=== PATIENT | female | born 1955 | race Caucasian/White ===

== ENCOUNTER → 2022-04-19 16:45 | Outpatient (CLI) | payer MEDICARE, BC, SELFPAY ==
--- NOTE | ~2022-04-19 | MR_ITS ---
EXAMINATION: MR knee RT wo con DATE: 04/19/2022 17:27 INDICATION: Medial right knee pain x3 weeks, no trauma TECHNIQUE: Magnetic resonance imaging (MRI) of the right knee was performed without intravenous contr ast. Sequences included axial PD-weighted FS FSE, coronal PD-weighted FSE and PD-weighted FS FSE, sag ittal PD-weighted FSE, and sagittal T2-weighted FS FSE. COMPARISON: X-ray right knee for 721, images only. FINDINGS: Medial compartment: Oblique undersurface tear of the posterior horn, medial meniscus. Mild extrusion. A small flap of men iscal tissue extends into the medial recess. Small apical tear of the meniscal body. Moderate diffuse cartilage thickening with multifocal areas of full-thickness focal cartilage loss and/or signal abno rmality. Marrow edema in the medial aspect of the tibial plateau Moderate osteophytosis. Lateral compartment: No meniscal tear. Moderate diffuse thinning of cartilage, without focal defect. Mild osteophytosis. Patellofemoral compartment: Near full-thickness cartilage loss on the median facet with subjacent subcortical cyst and reactive m arrow change. Mild osteophytosis. Intact retinacula. Ligaments and tendons: Thickening with subtle fiber discontinuity and mild superficial and deep signal at the proximal MCL. The ACL, PCL, and LCL are intact. The remaining flexor and extensor tendons are intact. Fluid: No significant knee joint effusion. Small Harper's cyst. Osseous/other: Degenerative subcortical cystic change and edema in the posterior aspect of the nonweightbearing surf ann marie of the medial femoral condyle. Otherwise, no suspicious focal or diffuse marrow signal IMPRESSION: 1. Oblique undersurface tear of the posterior horn, medial meniscus. 2. Tricompartmental osteoarthritic change, moderate in the medial compartment. 3. Low-grade, possibly chronic MCL injury. 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
== END ==
PROVIDERS: Visit Provider Nurse Practitioner
DX: M17.11 Unilateral primary osteoarthritis, right knee (principal); S83.241A Other tear of medial meniscus, current injury, right knee, initial encounter; X58.XXXA Exposure to other specified factors, initial encounter
CPT/HCPCS: 73721

== ENCOUNTER 2022-07-03 10:20 | Emergency (ER) | payer MEDICARE, BC, SELFPAY ==
--- NOTE | ~2022-07-03 | XR_ITS ---
XR foot RT min 3V DATE: 07/03/2022 10:40 INDICATION: Rolled foot yesterday. Lateral foot pain. TECHNIQUE: 4 views COMPARISON: None FINDINGS: Transverse virtually nondisplaced fracture at the very proximal shaft of the fifth metacarp al bone. There is an old healed fracture deformity of the mid to distal fifth metatarsal shaft. Status post bunionectomy. Polyarticular osteoarthritis. Prominent plantar calcaneal enthesopathy. IMPRESSION: Transverse virtually nondisplaced fracture at the very proximal shaft of the fifth metata rsal bone Reviewed, dictated and finalized at location A. [employer] IMPRESSION: Transverse virtually nondisplaced fracture at the very proximal sha ft of the fifth metatarsal bone
[2022-07-03 10:30] VITALS: BP 153/96; PULSE 79; RESP 18; TEMP 36.6; O2SAT 99
--- NOTE | 2022-07-03 11:01 | ED.LOWEXIN ---
HPI - Extremity Injury (Lower) General Chief Complaint: Extremity Injury, Lower Stated Complaint: Rt Foot Pain and Swelling Time Seen by Provider: 07/03/22 10:53 Source: patient Mode of arrival: ambulatory Limitations: no limitations History of Present Illness HPI Narrative: Patient presents today complaining of an injury to her right foot. She was walking last night she and a stepped off a curb twisting her foot. She has been ambulatory with pain since the injury. Denies numbness or tingling. She is pain-free at rest, but this increases to 7/10 with weight-bearing. She applied ice, took ibuprofen last night and elevated the foot, which did provide some relief. She has an established relationship with Dr. Ramírez. Related Data Home Medications Medication Instructions Recorded Confirmed acetaminophen 650 mg 650 mg PO Q12H 08/13/20 07/03/22 tablet,extended release (Tylenol Arthritis Pain) escitalopram oxalate 5 mg tablet 5 mg PO DAILY 08/13/20 07/03/22 simvastatin 40 mg tablet 40 mg PO DAILY 08/13/20 07/03/22 Allergies Allergy/AdvReac Type Severity Reaction Status Date / Time ciprofloxacin AdvReac Mild Hives Verified 07/03/22 10:25 Review of Systems Review of Systems: CONSTITUTIONAL: Denies body aches, fever, chills, or sweats. EYES: Denies visual changes, redness, or discharge. ENT: Denies rhinorrhea, congestion, sore throat, or otalgia. CARDIOVASCULAR: Denies chest pain, palpitations, or edema. RESPIRATORY: Denies cough or dyspnea. GASTROINTESTINAL: Denies abdominal pain, nausea, vomiting, or diarrhea. GENITOURINARY: Denies dysuria or hematuria. SKIN: Denies rash, itching, or wounds. MUSCULOSKELETAL: Denies back pain, or myalgia.+ right foot injury NEUROLOGIC: Denies headache, numbness, tingling, or weakness. PSYCH: Denies depression or anxiety. FOR[facility], [facility] Past Medical History Medical History Degenerative arthritis of knee, bilateral Hyperlipemia Surgical History Surgical History History of bunionectomy History of surgical removal of ganglion cyst History of tubal ligation Family History Family History Other Diabetes mellitus Heart disease Hypertension Social History Social History Smoking status: Never smoker Alcohol intake: current Living arrangements: with family Occupation/Education: retired Gender identity (if verbalized by the patient): Female Comments At time of signature, I have reviewed and agree with nursing past medical, surgical, social and family history unless otherwise noted. Please see nursing chart for further information. There is no relevant family history pertinent to the presenting complaint Exam Narrative: GENERAL: Well-appearing, well-nourished, and in no acute distress. HEAD: Normocephalic, atraumatic. EYES: EOMI. No redness or drainage. Conjunctivae normal. ENT: Mucous membranes pink and moist. NECK: Normal AROM. CHEST: No respiratory distress. EXTREMITIES: Right foot: Tenderness, swelling, and ecchymosis to the lateral foot. Distal sensation intact. Capillary refill normal. Pupils normal. Ganglion cyst to the dorsum of the foot with old surgical scar. Full range of motion of the toes. Ankle is nontender. SKIN: Warm, dry, no rash. Capillary refill normal. Normal skin turgor. NEURO: No focal deficits. Alert and oriented x3. Gait steady. PSYCH: Normal affect. No signs of depression or anxiety. Course Course Level of Care: Express Care Visit Vital Signs Vital signs: Vital Signs Temperature 97.9 F 07/03/22 10:30 Pulse Rate 79 07/03/22 10:30 Respiratory Rate 18 07/03/22 10:30 Blood Pressure 153/96 H 07/03/22 10:30 Pulse Oximetry 99 07/03/22 10:30 Oxygen Delivery Room Air 07/03/22
== END 2022-07-03 11:10 | disposition home or self-care (01) ==
PROVIDERS: Emergency Provider Nurse Practitioner; PCP Family Medicine
DX: S92.354A Nondisplaced fracture of fifth metatarsal bone, right foot, initial encounter for closed fracture (principal); X50.9XXA Other and unspecified overexertion or strenuous movements or postures, initial encounter; M17.0 Bilateral primary osteoarthritis of knee; E78.5 Hyperlipidemia, unspecified
CPT/HCPCS: 73630; 99214; G0463